=== PATIENT | female | born 1995 | race Hispanic/Latino ===

== ENCOUNTER 2019-09-15 05:25 | Emergency (ER) | payer OTHER ==
[~2019-09-15] VITALS: Ht 157.5 cm; Wt 60.3 kg
[~2019-09-15 05:25] MED LIST: PRENATAL TABLE1 EAC1 PO
== END 2019-09-15 09:34 | disposition home or self-care (01) ==
LOC: ED 05:25
DX: O20.9 Hemorrhage in early pregnancy, unspecified (principal); O26.851 Spotting complicating pregnancy, first trimester; O99.89 Other specified diseases and conditions complicating pregnancy, childbirth and the puerperium; M54.5 Low back pain; Z3A.01 Less than 8 weeks gestation of pregnancy
CPT/HCPCS: 76801; 76817; 81001; 84702; 85025; 99284-25

== ENCOUNTER 2020-04-20 00:09 | Inpatient (IN) | payer OTHER ==
[~2020-04-20] VITALS: Ht 157.5 cm; Wt 91.0 kg
[2020-04-20] MEDS ORDERED: PRENATAL VITAM1 EACH PO (06:40)
--- NOTE | 2020-04-20 12:32 | PR ---
[facility] [address] [facility] [place], [place] [address] Signed Progress Notes IP Datetime Report Generated by CPN: 04/20/2020 12:32 PROGRESS NOTES: [id number] Impression: Arrest of dilatation/descent; Reassuring heart rate Procedures: Sterile Vag Exam Plan: Augmentation Informed Consent Obtain: Vaginal Delivery; Induction of Labor; Risks, Benefits and Alternatives Discussed VITAL SIGNS: [id number] Vital Signs: Reviewed; Within Normal Limits EXAM: [id number] Dilatation: 4.0 Effacement: 70 Station: -2 Uterine Contractions: irregular MEMBRANES: [id number] Membrane Status: Intact Comments: Very poor progress and contractions have decreased in frequency. I feel pit augment is needed. Fetus A: [id number] FHR Baseline: 125 Variability: Moderate 6-25bpm Accelerations: 15X15 Decelerations: None FHR Category: Category I Presentation: Vertex Comments on Fetus A: No evidence of metabolic acidosis Fetus B: [id number] Signing Physician: Leigh Ann Nevarez MD Copies: ~ *Electronically Signed* 04/20/20 1232 LEIGH ANN NEVAREZ MD PATIENT NAME: EFREM BLAIR PROGRESS NOTE DATE OF : 95 PHYSICIAN: LEIGH ANN NEVAREZ MD RPT #: [id number] REPORT IS CONFIDENTIAL AND NOT TO BE RELEASED WITHOUT AUTHORIZATION
--- NOTE | 2020-04-20 18:11 | PR ---
[facility] [address] [facility] [place], [place] [address] Signed Progress Notes IP Datetime Report Generated by CPN: 04/20/2020 18:11 PROGRESS NOTES: [id number] Impression: Slow Progression of Labor Procedures: Sterile Vag Exam Plan: Anesthesia consult Informed Consent Obtain: Vaginal Delivery; Induction of Labor; Risks, Benefits and Alternatives Discussed VITAL SIGNS: [id number] Vital Signs: Reviewed; Within Normal Limits EXAM: [id number] Dilatation: 7.0 Effacement: 80 Station: -2 Uterine Contractions: q 3 to 5 min MEMBRANES: [id number] Membrane Status: Intact Comments: Umcomfortable as epidural is wearing off on her left. Slow progress. Will redose epidural and increase pit as needed. Fetus A: [id number] FHR Baseline: 120 Variability: Moderate 6-25bpm Accelerations: 15X15 Decelerations: None FHR Category: Category I Presentation: Vertex Comments on Fetus A: No evidence of metabolic acidosis Fetus B: [id number] Signing Physician: Leigh Ann Nevarez MD Copies: ~ *Electronically Signed* 04/20/20 181 LEIGH ANN NEVAREZ MD PATIENT NAME: EFREM BLAIR PROGRESS NOTE DATE OF : 95 PHYSICIAN: LEIGH ANN NEVAREZ MD RPT #: [id number] REPORT IS CONFIDENTIAL AND NOT TO BE RELEASED WITHOUT AUTHORIZATION
--- NOTE | 2020-04-21 08:39 | PR ---
[facility] [address] [facility] [place], [place] [address] Signed PP Progress Notes Datetime Report Generated by CPN: 04/21/2020 08:39 SUBJECTIVE: [id number] Pain: Within normal limits Nausea/Vomiting: Denies Vital Signs: [id number] Vital Signs: Reviewed; Within Normal Limits EXAM: [id number] Cardiovascular: Not Done Respiratory: Not Done Abdomen/Uterus: Abnormal Lochia: Normal Vulva/Perineum: Not Done Breasts: Not Done CVA Tenderness: Not Done Extremities: Normal Incision: Not Applicable Progress: Abnormal Exam Comments: Fundus firm, NT @ U-1. 11.2/32.9, WBC 18.6, plat 215k IMPRESSION/PLAN/PROCEDURES: [id number] Impression: Normal progression; difficulties Plan: Continue present management Progress Notes: Doing well. She is tolerating ambulation well. Signing Physician: Leigh Ann Nevarez MD Copies: ~ *Electronically Signed* 04/21/20 0839 LEIGH ANN NEVAREZ MD PATIENT NAME: EFREM BLAIR PROGRESS NOTE DATE OF : 95 PHYSICIAN: LEIGH ANN NEVAREZ MD RPT #: [id number] REPORT IS CONFIDENTIAL AND NOT TO BE RELEASED WITHOUT AUTHORIZATION
--- NOTE | 2020-04-22 09:41 | PR ---
[facility] [address] [facility] [place], [place] [address] Signed PP Progress Notes Datetime Report Generated by CPZay: 04/22/2020 09:41 SUBJECTIVE: [id number] Pain: Within normal limits Nausea/Vomiting: Denies Vital Signs: [id number] Vital Signs: Reviewed; Within Normal Limits EXAM: [id number] Cardiovascular: Not Done Respiratory: Not Done Abdomen/Uterus: Abnormal Lochia: Normal Vulva/Perineum: Not Done Breasts: Not Done CVA Tenderness: Not Done Extremities: Normal Incision: Not Applicable Progress: Normal Exam Comments: Fundus firm, NT @ U-2. IMPRESSION/PLAN/PROCEDURES: [id number] Impression: Normal progression Plan: Discharge Progress Notes: Doing well. She is ready for D/C. Signing Physician: Leigh Ann Nevarez MD Copies: ~ *Electronically Signed* 04/22/20940 LEIGH ANN NEVAREZ MD PATIENT NAME: EFREM BLAIR PROGRESS NOTE DATE OF : 95 PHYSICIAN: LEIGH ANN NEVAREZ MD RPT #: [id number] REPORT IS CONFIDENTIAL AND NOT TO BE RELEASED WITHOUT AUTHORIZATION
== END 2020-04-22 09:45 | disposition home or self-care (01) | DRG 806 ==
LOC: FBC 00:09
PROVIDERS: ADMIT Obstetrics & Gynecology
PROC: 10E0XZZ Delivery of Products of Conception, External Approach (ICD-10-PCS; principal; 2020-04-20)
PROC: 10907ZC Drainage of Amniotic Fluid, Therapeutic from Products of Conception, Via Natural or Artificial Opening (ICD-10-PCS; 2020-04-20)
PROC: 3E0P7VZ Introduction of Hormone into Female Reproductive, Via Natural or Artificial Opening (ICD-10-PCS; 2020-04-20)
PROC: 00HU33Z Insertion of Infusion Device into Spinal Canal, Percutaneous Approach (ICD-10-PCS; 2020-04-20)
PROC: 3E0R3BZ Introduction of Anesthetic Agent into Spinal Canal, Percutaneous Approach (ICD-10-PCS; 2020-04-20)
DX: O36.63X0 Maternal care for excessive fetal growth, third trimester, not applicable or unspecified (principal); O72.1 Other immediate postpartum hemorrhage; Z37.0 Single live birth; O62.1 Secondary uterine inertia; O99.214 Obesity complicating childbirth; E66.9 Obesity, unspecified; Z3A.39 39 weeks gestation of pregnancy
CPT/HCPCS: 01960; 85027; A9270; J2210; J2590; J2795; J3010; J7121

== ENCOUNTER 2021-02-10 10:20 | Day surgery (SDC) | payer OTHER ==
[~2021-02-10] VITALS: Ht 157.5 cm; Wt 89.1 kg
[~2021-02-10 10:20] MED LIST changes: +PRENATAL VITAM1 EACH PO
--- NOTE | 2021-02-10 11:06 | NUR ---
RAPID SWAB COLLECTED
--- NOTE | 2021-02-10 13:57 | NUR ---
02/10/21 1359 DARIO LLANES - 1350-PATIENT ARRIVED TO PACU ON 6L O2 WITH A MASK. PATIENT COUGHING INTERMITTENTLY, HEAD OF BED RAISED AND PATIENT ENCOURAGED TO DEEP BREATHE. PATIENT ORIENTED TO PACU. DROWSY BUT RESPONSIVE TO STIMULI.
[2021-02-10] MEDS ORDERED: MOTRIN IB200 MG PO (14:13)
[2021-02-10] MEDS ORDERED: HYDROCODON-ACE1 EA10 PO (14:14)
[2021-02-10] MEDS ORDERED: DOXYCYCLINE HY100 MG PO (14:15)
--- NOTE | 2021-02-11 19:55 | OR ---
[facility] [address] [place], [place] [address] Signed DATE OF OPERATION: 02/10/2021 SURGEON: Leigh Ann Nevarez MD PREOPERATIVE DIAGNOSIS: Blighted ovum. POSTOPERATIVE DIAGNOSIS: Blighted ovum. PROCEDURE: Suction D and C. ANESTHESIA: MAC. ESTIMATED BLOOD LOSS: 15 mL. DRAINS: None. INDICATIONS AND FINDINGS: The patient is a 25-year-old female, 3, para 2, who was diagnosed with a blighted ovum by ultrasound over a week ago. She has had no bleeding or pain. After discussion with her options, she wished to undergo D and C. She is 10 weeks now by dates. At the time of surgery, her cervix was closed. There was no bleeding. The uterus was approximately 9 week size, soft. DESCRIPTION OF PROCEDURE: The patient was prepped and draped in the dorsal lithotomy position. An open-sided speculum was placed. The anterior lip of the cervix was visualized and grasped with a single-tooth tenaculum. The endocervical canal was then easily dilated to a #9 dilator. Following this, a #9 curved suction curette was introduced and suction curettage was done with removal of a large amount of tissue. This was followed by sharp curettage with removal of moderate amount of tissue. Suction and sharp curettage were alternated until the cavity felt clean and contracted. The tenaculum was then removed. There was no evidence of any ongoing bleeding from the cervix. The procedure was then terminated and patient was taken to the recovery room in good condition. Electronically Signed By: LEIGH ANN NEVAREZ MD 02/11/211954 PATIENT NAME: EFREM BLAIR OPERATIVE REPORT DATE OF : 95 REPORT #: [id number] PHYSICIAN: LEIGH ANN NEVAREZ MD PCP: NO PRIMARY CARE PHYSICIAN REPORT IS CONFIDENTIAL AND NOT TO BE RELEASED WITHOUT AUTHORIZATION [address] [address] Signed Leigh Ann Nevarez MD PJPai/MODL /[id number] Copies: ~ Electronically Signed By: LEIGH ANN NEVAREZ MD 02/11/211954 PATIENT NAME: EFREM BLAIR OPERATIVE REPORT DATE OF : 95 REPORT #: [id number] PHYSICIAN: LEIGH ANN NEVAREZ MD PCP: NO PRIMARY CARE PHYSICIAN REPORT IS CONFIDENTIAL AND NOT TO BE RELEASED WITHOUT AUTHORIZATION
--- NOTE | 2021-02-16 12:48 | PATH ---
[facility] [address] [place], [place] [address] Signed SPECIMEN(S): A PRODUCTS OF CONCEPTION SPECIMEN SOURCE: A. PRODUCTS OF CONCEPTION CLINICAL HISTORY: Blighted ovum and non-hydatidiform mole. Suction DC. FINAL PATHOLOGIC DIAGNOSIS: Products of conception: - Immature chorionic villi and fragments of decidualized endometrium consistent with intrauterine gestation. (see comment) COMMENT: Negative for evidence of a complete mole. JVR:ronal:C2NR MICROSCOPIC EXAMINATION: Histologic sections of all submitted blocks are examined by light microscopy. These findings, together with the gross examination, support the pathologic diagnosis. A P57 immunostain is positive within the villi (block A1, appropriate controls noted). GROSS DESCRIPTION: The specimen, labeled "KM, products of conception," is received in formalin and consists of irregular shaped, pink-gil, membranous tissue fragments that aggregate measure 8.5 x 6.7 x 1.5 cm. No tissue grossly identified. Lithographic Plate Maker Apprentice sections are submitted in cassettes (A1-A3). JS (under the direct supervision of a pathologist) The Gross Description was prepared using a voice recognition system. The report was reviewed for accuracy; however, sound-alike word errors, addition and/or deletions may occur. If there is any question about this report, please contact Client Services. PERFORMING LABORATORY: The technical component was performed by [facility], [address] [place] [id number] (Ice Cream Dipper: Stephany Rivas MD; CLIA# [id number]). Professional interpretation was performed by [facility] [employer], [address] PATIENT NAME: EFREM BLAIR PATHOLOGY DATE OF : 95 REPORT #: [id number] PHYSICIAN: [facility] PCP: NO PRIMARY CARE PHYSICIAN REPORT IS CONFIDENTIAL AND NOT TO BE RELEASED WITHOUT AUTHORIZATION [facility] [address] [place], [place] [address] [place] [address]. Diagnostician: Aaron Lew MD Pathologist Electronically Signed 02/16/2021 Copies: ~ PATIENT NAME: EFREM BLAIR PATHOLOGY DATE OF : 95 REPORT #: [id number] PHYSICIAN: [facility] PCP: NO PRIMARY CARE PHYSICIAN REPORT IS CONFIDENTIAL AND NOT TO BE RELEASED WITHOUT AUTHORIZATION
== END 2021-02-10 15:00 | disposition home or self-care (01) ==
LOC: OPS 10:20 → DS 10:20 → OPS 10:23 → DS 10:23 → OPS 12:30
PROVIDERS: ATTEND Obstetrics & Gynecology
PROC: 10D07Z6 Extraction of Products of Conception, Vacuum, Via Natural or Artificial Opening (ICD-10-PCS; principal; 2021-02-10 12:30)
DX: O02.0 Blighted ovum and nonhydatidiform mole (principal); F32.9 Major depressive disorder, single episode, unspecified; E66.9 Obesity, unspecified; Z68.35 Body mass index [BMI] 35.0-35.9, adult
CPT/HCPCS: 00952; 85025; 88305; 88342; C9803; J1100; J1885; J2001; J2250; J2405; J2704; J2765; J3010; J7121; U0003